=== PATIENT | female | born 1955 | race Caucasian/White ===

== ENCOUNTER → 2016-09-10 | Day surgery (SDC) | payer OTHER ==
[~2016-09-10] MED LIST: AMLODIPINE BESY10 M1 PO; ATIVAN1 M2 PO; ATORVASTATIN CA20 M1 PO; CENTRUM SILVER1 EAC3 PO; CORTEF10 M1 PO; COZAAR25 M1 PO; CULTURELLE1 EAC1 PO; FLAGYL500 M1 PO; FOLIC ACID1 M1 PO; INDERAL LA80 M1 PO; LASIX40 M1 PO; METFORMIN HCL500 M2 PO; METFORMIN HCL500 M3 PO; OCUVITE EYE +1 EACH PO; OMEPRAZOLE20 M3 PO; PROPRANOLOL HCL80 M2 PO; PROTONIX40 M2 PO; RANITIDINE HCL150 M2 PO; THIAMINE HCL100 M2 PO; VITAMIN D35000 UNI2 PO
== END ==
LOC: US 08:18 → SHSB 08:22 → US 08:23
DX: K76.0 Fatty (change of) liver, not elsewhere classified (principal); R16.2 Hepatomegaly with splenomegaly, not elsewhere classified; K82.8 Other specified diseases of gallbladder

== ENCOUNTER 2016-11-10 12:23 | Day surgery (SDC) | payer OTHER ==
[2016-11-10 13:52] LABS: ANION GAP 14 mmol/L (0-20); BASO % 0.3 % (0-2); BLOOD UREA NITROGEN 16 mg/dl (6-24); CALCIUM 9.5 mg/dl (8.5-10.5); CARBON DIOXIDE-VENOUS 27 mmol/L (22-32); CHLORIDE 101 mmol/l (96-110); CREATININE 0.82 mg/dl (0.50-1.10); EOS % 1.4 % (0-7); EOSINOPHIL ABSOLUTE COUNT 0.1 tho/cmm (0.0-0.7); GLUCOSE 100 mg/dL (70-110); HCT-HEMATOCRIT 35.3 % (34.0-49.0); HGB-HEMOGLOBIN 12.6 gm/dl (12.0-15.5); IMMATURE GRANULOCYTES ABSOLUTE 0.03 tho/cmm (0-0.03); IMMATURE GRANULOCYTES PERCENT 0.4 % (0-0.3); LYMPH % 32.9 % (20-45); LYMPH ABSOLUTE COUNT 2.4 tho/cmm (0.8-4.5); MCH (MEAN CORPUSCULAR HGB) 30.8 pg (28.0-32.0); MCHC MEAN CORPUSCULAR HGB CONC 35.7 % (32.0-36.0); MCV (MEAN CELL VOLUME) 86.3 fl (82.0-96.0); MONO % 6.1 % (0-12); MONOCYTE ABSOLUTE COUNT 0.5 tho/cmm (0.0-1.2); NEUTROPHIL ABSOLUTE COUNT 4.3 tho/cmm (1.6-8.0); NEUTROPHIL-AUTOMATED 4.3 tho/cmm (1.6-8.0); NEUTROPHILS % 58.9 % (40-80); PLATELET COUNT 139 tho/cmm (150-450); RED BLOOD COUNT 4.09 mil/cmm (4.00-5.20); RED CELL DISTRIBUTION WIDTH 14.6 % (12.4-16.4); SODIUM 138 mmol/L (135-145); WHITE BLOOD COUNT 7.4 tho/cmm (4.0-10.0); eGFR VALUE FOR BLACK >90 mL/Min
[2016-11-10 14:23] LABS: WBC MORPHOLOGY VARIANT LYMPHS
== END 2016-11-10 14:15 ==
LOC: ENDOS 12:23 → SHSC 12:24 → ENDOS 13:25
PROVIDERS: Anesthesiology
PROC: 0DB78ZX Excision of Stomach, Pylorus, Via Natural or Artificial Opening Endoscopic, Diagnostic (ICD-10-PCS; principal; 2016-11-10)
DX: I85.00 Esophageal varices without bleeding (principal); K76.6 Portal hypertension; K31.89 Other diseases of stomach and duodenum; K29.50 Unspecified chronic gastritis without bleeding; I10 Essential (primary) hypertension; E11.9 Type 2 diabetes mellitus without complications; I27.2 Other secondary pulmonary hypertension; K21.9 Gastro-esophageal reflux disease without esophagitis; D50.9 Iron deficiency anemia, unspecified; Z79.899 Other long term (current) drug therapy; Z87.11 Personal history of peptic ulcer disease; Z90.710 Acquired absence of both cervix and uterus; Z98.890 Other specified postprocedural states